=== PATIENT | male | born 1995 | race Caucasian/White ===

== ENCOUNTER 2025-01-27 19:02 | Emergency (ER) | payer OTHER, SELFPAY ==
[2025-01-27 19:04] VITALS: BP 127/75; PULSE 89; RESP 18; TEMP 37; O2SAT 98; BMI 33.6
--- NOTE | 2025-01-27 19:22 | RAD_ITS ---
PROCEDURE: RIGHT ANKLE MIN 3 VIEWS 01/27/2025 REASON FOR EXAM: PAIN TECHNIQUE: Procedure Code: RADANK Modality: DX Procedure: ANKLE MIN 3 VIEWS Laterality: Right COMPARISON: None. FINDINGS: No acute fracture or dislocation. Alignment is anatomic. Preserved joint spaces. Mild dorsal and plantar calcaneal spurring. No aggressive osseous lesion. No appreciable soft tissue swelling. RAD/Ankle min 3 Views IMPRESSION: No acute fracture or dislocation. Reading Location: [id number]
[2025-01-27 23:02] VITALS: BP 127/74; PULSE 81; RESP 16; O2SAT 99
--- NOTE | 2025-01-27 23:21 | ED.VIS.LOWEX ---
HPI History of Present Illness HPI Narrative: Patient presents with right ankle injury that occurred today. Patient states he was walking down some steps at work when he missed a step and inverted his right ankle. Patient states he heard a pop. Patient states the pain is worse over the lateral aspect of the right ankle. Patient states it is worse with any movement or weightbearing. Patient states it is better with rest. Patient describes his pain as burning. Patient denies any paresthesias or weakness. Patient denies any other injuries. Chief Complaint: Lower Extremity Injury Informant: patient Occured/Mechanism Comment: Missed a step and inverted his right ankle Onset/Context/Timing Onset: Today Context: Sudden Onset Timing: Continuous Quality of Pain: Burning Worsened by: Movement Relieved by: Rest Associated Symptoms Associated Symptoms: Negative for Parasthesia, Weakness or Loss of Funtion PFSH PFSH Medical History unable to obtain Home Medications ?Medication ?Instructions ?Recorded ?Last Taken ?Type hydrocodone-acetaminophen 5-325mg 1 tab PO Q6H PRN PRN Pain 3 days 01/27/25 Unknown Rx 5mg-325mg #10 TABLETS Allergy/AdvReac Type Severity Reaction Status Date / Time NSAIDS (Non-Steroidal Allergy Mild SURGERY Verified 01/27/25 19:05 Anti-Inflamma Surgical History (Updated 01/27/25 @ 23:[address] Randall Mackay, ) Hx of tonsillectomy Hx of bariatric surgery Social History (Updated 01/27/25 @ 23:[address] Randall Mackay, ) Smoking Status: Unknown if ever smoked substance use type: marijuana ROS ROS ED Constitutional Constitutional ED: Denies chills or fever(s) Eyes Eyes: Denies blurry vision or change in vision ENT ENT ED: Denies rhinorrhea or sore throat Cardiovascular Cardiovascular: Denies chest pain or palpitations Respiratory/Chest Respiratory/Chest: Denies cough or dyspnea Gastrointestinal Gastrointestinal: Denies nausea or vomiting Genitourinary Genitourinary ED: Denies dysuria or hematuria Musculoskeletal Musculoskeletal: Denies back pain or neck pain Integumentary Denies abscess or rash Neurologic Neurologic: Denies headache(s) or weakness Allergic/Immunologic Allergic/Immunologic ED: Denies mouth swelling or urticaria EXAM Physical Exam Const Vital Signs: 01/27/25 19:04 01/27/25 23:02 Temperature 98.6 F Temperature Source Oral Pulse Rate 89 81 Respiratory Rate 18 16 Blood Pressure 127/75 H 127/74 H Blood Pressure Mean 92 91 Pulse Ox 98 99 Oxygen Delivery Method Room Air Positive well nourished and well developed General Appearance ED: well developed and NAD HEENT Reports moist mucous membranes normocephalic and atraumatic Neck full ROM Extremity Extremity Narrative: There is tenderness and mild edema over the lateral aspect of the right ankle. There is no bony crepitance or step-off. There is no deformity noted. Range of motion was limited in all motions of the right ankle secondary to pain. Strength is 5/5 bilaterally in the lower extremities. There are no sensory deficits noted. Pedal pulses are equal bilaterally. Capillary refill was less than 2 seconds in all digits. General Extremety ED: Yes weight-bearing difficulty General Extremity: weight-bearing difficulty Neuro oriented x3, CN's II-XII intact bilaterally, moves all extremities and no sensory deficits noted Sensorium / Orientation: alert Motor Exam: strength 5/5 throughout Psych mental status grossly normal MDM MDM MDM Narrative Medical decision making narrative: Differential diagnosis includes fracture, sprain, and contusion. X-rays of the right ankle will be obtained to assess for fracture. Radiography Diagnostic Testing: Clinical Impression(s) from Imaging Studies Ankle X-Ray 01/27/25 19:22 IMPRESSION: No acute fracture or dislocation. Reading Location: [facility] X-rays of the right ankle were obtained. There are 3 views. On my independent interpretation, there is no acute fracture or dislocation noted. Radiologist also interpreted the x-rays and agrees. Treatment and Re-Evaluation Narrative: Patient was advised of his findings. Patient was given a dose of Thornton here. Patient was instructed to ice and elevate the right ankle. Patient was given an Aircast. Patient was given crutches. Patient was given restrictions for work. Patient was given a prescription for a short course of Thornton. Patient was instructed to follow-up with his primary care physician or the [facility] in 5 to 7 days. Patient was instructed to return if worse in any way. Patient understood and was agreeable with the plan. All questions were answered. Discharge Plan Triage Chief Complaint: Lower Extremity Injury ED Provider: Randall Mackay Dx/Rx/DC Orders Clinical Impression: Right ankle sprain, Fall Instructions: ED Ankle Sprain (Adult) Prescriptions: New hydrocodone-acetaminophen 5-325 mg tablet 1 tab PO Q6H PRN PRN (Reason: Pain) 3 Days Qty: 10 0RF Stand Alone Forms: Work Status Form Print Language: Danish Disposition Disposition: Home, Self Care
[2025-01-27] MEDS: HYDROcodone Bitartrate/Apap 5/325 Tablet PO (23:44)
[2025-01-27 23:51] VITALS: BP 118/69; PULSE 74; RESP 16; TEMP 36.6; O2SAT 99
== END 2025-01-27 23:51 | disposition home or self-care (01) ==
PROVIDERS: Emergency Provider Emergency Medicine; Visit Provider Emergency Medicine
DX: S93.401A Sprain of unspecified ligament of right ankle, initial encounter (principal); Z98.84 Bariatric surgery status; F12.90 Cannabis use, unspecified, uncomplicated; W10.9XXA Fall (on) (from) unspecified stairs and steps, initial encounter
CPT/HCPCS: 73610; 99284